=== PATIENT | female | born 1970 | race Caucasian/White ===

== ENCOUNTER 2017-04-03 17:46 | Emergency (ER) | payer OTHER ==
--- NOTE | 2017-04-03 19:32 | ED NURSING NOTES ---
Clinical Report - Nurses [facility] [address] [place] [address] 04/03/2017 17:48 Patient: KAREN MEIER TRIAGE Acuity: LEVEL 3. Chief Complaint: COUGH and (fever). Alert. No acute distress. SEPSIS SCREEN: Sepsis Screen. Negative (no infection suspected/documented). --18:09 Neelam Longo R.N. 18:02 04/03/17. BP: 125/54. HR: 107. RR: 18. O2 saturation: 93% on room air. Temp: 99.5 F (oral). Pain level now: 06/11. --18:09 Neelam Longo R.N. Weight: 117.9 kg stated. Height/Length: 63 inches Per Patient. BMI: 46.1. --18:06 Neelam Longo R.N. Medications Gabapentin Oral. --18:03 Neelam Longo R.N. Medication/allergy information source: the patient. --18:09 Neelam Longo R.N. Allergies No Known Drug Allergy. --18:03 Neelam Longo R.N. History Arrived by private vehicle. Historian: patient. Accompanied by (aunt). Primary physician (Garth). Onset. (4 days ago). ( Pt reports cough with headache and back pain for 4 days. Pt states she is coughing up green sputum.). She has had a nasal discharge, chest congestion and a headache. 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 PAST MEDICAL HX: No known contact with a sick individual. Immunizations: up-to-date. Last normal menstrual period was 6 weeks ago. Sexual history - sexually active. Has had a tubal ligation. No recent travel. SOCIAL HX: Former smoker, end date 1999. Occasional alcohol use. No drug use. FALL RISK ASSESSMENT: Fall risk assessment completed. No fall risk identified. NUTRITIONAL RISK ASSESSMENT: The nutritional risk assessment revealed no deficiencies. FUNCTIONAL ASSESSMENT: Functional assessment: no impairments noted. LEARNING NEEDS ASSESSMENT: The learning needs assessment revealed no barriers. SKIN INTEGRITY ASSESSMENT: Skin integrity risk assessment completed. No skin integrity risk identified. --18:09 Neelam Longo R.N. PROBLEMS: Trigeminal Neuralgia. Pneumonia. --18:04 Neelam Longo R.N. ADDITIONAL SURGERIES: Breast Augmentation. Dilatation & Curettage. Lumpectomy of breast. --18:04 Neelam Longo R.N. Assessment GENERAL / NEURO / PSYCH: Alert. Oriented X 4. Appears in no acute distress. Patient appears calm and cooperative. RESPIRATORY: Respirations not labored. Cough. CVS: Capillary refill less than 2 seconds. GI / : Abdomen soft. SKIN: Mucous membranes are pink. Skin is warm and dry. --18: Neelam Longo R.N. Interventions ID band on patient. To treatment room. --18: Neelam Longo R.N. PHYSICAL ASSESSMENT 18:10 04/03/17. Ambulatory to room. GENERAL / NEURO / PSYCH: Alert. Oriented X 4. Appears in no acute distress. HEENT: Pupils equal, round and reactive to light. Voice within normal limits. Mucous membranes are pink. RESPIRATORY: Respirations not labored. The patient can speak in full sentences. Nonproductive cough. CVS: Cardiac rhythm: sinus tachycardia. Capillary refill less than 2 seconds. SKIN: Skin is warm and dry. Normal skin turgor. --18:10 Neelam Longo R.N. NURSING PROGRESS NOTES Two patient identifiers checked. Checked patient name and birthdate: patient confirmed. Call light placed in reach. Bed placed in lowest position. Brakes of bed on. Patient ready for evaluation- chart flagged and ED physician and AUDIO/VIDEO ENGINEER notified. --18:11 Neelam Longo R.N. 18:12 04/03/2017 Site #1 started via IV in the right antecubital space with an 20g angiocath, with aseptic technique and good blood return; one attempt. Blood drawn: rainbow set. Labeled in the presence of the patient and sent to the lab. Saline lock flushed with 10 mL saline. --18:12 Neelam Longo R.N. 18:28 04/03/17. Patient walked to radiology with tech. --18:28 Neelam Longo R.N. EKG time: (8498). EKG was ordered, performed by a tech and shown to the ED physician. --18:28 Jael Ibarra Patient ID band checked for patient name and birthdate: patient confirmed. Clean catch urine collected with return of yellow-colored clear urine; odor is normal; sample sent to lab for urinalysis and culture. Specimen labeled in the presence of the patient. --18:38 Ana Maria Londono R.N. 18:52 04/03/2017 Started bag #1 1000 mL IV Fluids IV NS (Saline); at 999 mL/hr over 1 hour(s) via site #1 via IV pump. Allergies verified and confirmed 5 rights. IV patency established. IV site checked: no pain, redness, or swelling. IV flushed thoroughly pre- and post-medication administration. --18:52 Neelam Longo R.N. 19:06 04/03/17. Care transferred and report given ([place]). --19:06 Neelam Longo R.N. Care transferred and report received (Neelam Garcia RN). --19:14 Liz Mccauley R.N. <<STRICKEN ENTRY-- 19:14 04/03/17. The patient reports no complaints and she is calm. RESPIRATORY: No respiratory distress. Breath sounds normal. SKIN: Skin is warm and dry. Skin color is within normal limits for race. --19:14 Liz Mccauley R.N. --END STRIKE>> Charted On Wrong Patient --19:15 Liz Mccauley R.N. 19:15 04/03/17. The patient reports no complaints. RESPIRATORY: The patient reports cough. SKIN: Skin is warm and dry. Skin color is within normal limits for race. --19:15 Liz Mccauley R.N. 19:16 04/03/17. BP: 156/78 (regular adult cuff) taken on the left arm, while sitting. HR: 96. RR: 20. O2 saturation: 93% on room air. --19:16 Liz Mccauley R.N. 19:50 04/03/2017 IV Fluids IV NS Discontinued: bag #1 discontinued upon discharge. Total amount infused: 900 mL. IV patency established. IV site checked: no pain, redness, or swelling. IV flushed thoroughly. --19:55 Liz Mccauley R.N. DISPOSITION / DISCHARGE 19:55 04/03/2017 Site #1 removed upon discharge. Bandaid applied. --19:55 Liz Mccauley R.N. Departure time: 19:55 Apr 03 2017. Condition at departure: improved. No learning barriers present. Discharge instructions provided and reviewed with the patient. Reviewed medication(s) side effects, precautions, dosing and course information. Prescription(s) given to the patient. Patient verbalized understanding. Written instructions provided in [place]. The patient was discharged by the physician. She was discharged home and accompanied by parent. She left the Emergency Department ambulatory and via private vehicle. Parent driving. --19:56 Liz Mccauley R.N. 19:53 04/03/17. BP: 128/62 (regular adult cuff) taken on the left arm, while sitting. HR: 90. RR: 20. O2 saturation: 98% on room air. Temp: 99.1 F (oral). Pain level now: 5/10. Additional comments: chest. --19:56 Liz Mccauley R.N. Locked/Released at 04/04/2017 5:39 by Liz Mccauley R.N.
--- NOTE | 2017-04-03 19:32 | ED ORDER SUMMARY ---
..... Patient: KAREN MEIER OrderSheet [facility] VisitID: [id number] [address] [place] [address] 46y, F Registration Date/Time: 04/03/2017 ORDER SHEET Weight: 117.9 kg (stated) Allergies: No Known Drug Allergy GENERAL ORDERS: Chest 2V Urgent (18:18 04/03/2017 Sidney Garcia) (Ack 18:23 LNations ER Tech1) (18:40 MCampbell) Baggage Porter (Continuous) (cp ) (18:18 04/03/2017 Sidney Garcia) (Ack 18:23 LNations ER Tech1) (18:24 MWinterer R.N.) CBC w Diff Urgent (18:18 04/03/2017 Sidney Garcia) (Ack 18:23 LNations ER Tech1) (18:24 MWinterer R.N.) CMP Urgent (18:18 04/03/2017 Sidney Garcia) (Ack 18:23 LNations ER Tech1) (18:24 MWinterer R.N.) UA-Culture if indicated Urgent (18:18 04/03/2017 Sidney Garcia) (Ack 18:23 LNations ER Tech1) (18:39 KWilliams R.N.) PT with INR Urgent (18:18 04/03/2017 Sidney Garcia) (Ack 18:23 LNations ER Tech1) (18:24 MWinterer R.N.) Urine Urgent (18:18 04/03/2017 Sidney Garcia) (Ack 18:23 LNations ER Tech1) (18:39 KWilliams R.N.) Troponin-I Urgent (18:18 04/03/2017 Sidney Garcia) (Ack 18:23 LNations ER Tech1) (18:24 MWinterer R.N.) Pulse oximeter (18:18 04/03/2017 Sindey Garcia) (Ack 18:23 LNations ER Tech1) (18:24 MWinterer R.N.) MEDICATION ORDERS: IV FLUIDS: IV Saline Lock (18:18 04/03/2017 Sidney Garcia) (18:24 MWinterer R.N.) IV NS : initial bolus 1000 mL (1000 mL/hr), then none - for X1 (NOW) (18:44 04/03/2017 Sidney Garcia) (Ack 18:45 MWinterer R.N.) (18:52 MWinterer R.N.) ORDER SHEET NOTES: [Electronically signed by Liz Mccauley R.N. (05:39 04/04/2017)] [Electronically signed by Robin Polanco Dr. (06:40 04/06/2017)] [Electronically locked/signed by Liz Mccauley R.N. (05:39 04/04/2017)]
--- NOTE | 2017-04-03 19:32 | ED NURSING NOTES ---
Clinical Report - Nurses [facility] [address] [place] [address] 04/03/2017 17:48 Patient: KAREN MEIER TRIAGE Acuity: LEVEL 3. Chief Complaint: COUGH and (fever). Alert. No acute distress. SEPSIS SCREEN: Sepsis Screen. Negative (no infection suspected/documented). --18:09 Neelam Longo R.N. 18:02 04/03/17. BP: 125/54. HR: 107. RR: 18. O2 saturation: 93% on room air. Temp: 99.5 F (oral). Pain level now: 06/11. --18:09 Neelam Longo R.N. Weight: 117.9 kg stated. Height/Length: 63 inches Per Patient. BMI: 46.1. --18:06 Neelam Longo R.N. Medications Gabapentin Oral. --18:03 Neelam Longo R.N. Medication/allergy information source: the patient. --18:09 Neelam Longo R.N. Allergies No Known Drug Allergy. --18:03 Neelam Longo R.N. History Arrived by private vehicle. Historian: patient. Accompanied by (aunt). Primary physician (Garth). Onset. (4 days ago). ( Pt reports cough with headache and back pain for 4 days. Pt states she is coughing up green sputum.). She has had a nasal discharge, chest congestion and a headache. 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 PAST MEDICAL HX: No known contact with a sick individual. Immunizations: up-to-date. Last normal menstrual period was 6 weeks ago. Sexual history - sexually active. Has had a tubal ligation. No recent travel. SOCIAL HX: Former smoker, end date 1999. Occasional alcohol use. No drug use. FALL RISK ASSESSMENT: Fall risk assessment completed. No fall risk identified. NUTRITIONAL RISK ASSESSMENT: The nutritional risk assessment revealed no deficiencies. FUNCTIONAL ASSESSMENT: Functional assessment: no impairments noted. LEARNING NEEDS ASSESSMENT: The learning needs assessment revealed no barriers. SKIN INTEGRITY ASSESSMENT: Skin integrity risk assessment completed. No skin integrity risk identified. --18:09 Neelam Longo R.N. PROBLEMS: Trigeminal Neuralgia. Pneumonia. --18:04 Neelam Longo R.N. ADDITIONAL SURGERIES: Breast Augmentation. Dilatation & Curettage. Lumpectomy of breast. --18:04 Neelam Longo R.N. Assessment GENERAL / NEURO / PSYCH: Alert. Oriented X 4. Appears in no acute distress. Patient appears calm and cooperative. RESPIRATORY: Respirations not labored. Cough. CVS: Capillary refill less than 2 seconds. GI / : Abdomen soft. SKIN: Mucous membranes are pink. Skin is warm and dry. --18: Neelam Longo R.N. Interventions ID band on patient. To treatment room. --18: Neelam Longo R.N. PHYSICAL ASSESSMENT 18:10 04/03/17. Ambulatory to room. GENERAL / NEURO / PSYCH: Alert. Oriented X 4. Appears in no acute distress. HEENT: Pupils equal, round and reactive to light. Voice within normal limits. Mucous membranes are pink. RESPIRATORY: Respirations not labored. The patient can speak in full sentences. Nonproductive cough. CVS: Cardiac rhythm: sinus tachycardia. Capillary refill less than 2 seconds. SKIN: Skin is warm and dry. Normal skin turgor. --18:10 Neelam Longo R.N. NURSING PROGRESS NOTES Two patient identifiers checked. Checked patient name and birthdate: patient confirmed. Call light placed in reach. Bed placed in lowest position. Brakes of bed on. Patient ready for evaluation- chart flagged and ED physician and REGISTERED NURSE SURGICAL SERVICES notified. --18:11 Neelam Longo R.N. 18:12 04/03/2017 Site #1 started via IV in the right antecubital space with an 20g angiocath, with aseptic technique and good blood return; one attempt. Blood drawn: rainbow set. Labeled in the presence of the patient and sent to the lab. Saline lock flushed with 10 mL saline. --18:12 Neelam Longo R.N. 18:28 04/03/17. Patient walked to radiology with tech. --18:28 Neelam Longo R.N. EKG time: (0174). EKG was ordered, performed by a tech and shown to the ED physician. --18:28 Jael Ibarra Patient ID band checked for patient name and birthdate: patient confirmed. Clean catch urine collected with return of yellow-colored clear urine; odor is normal; sample sent to lab for urinalysis and culture. Specimen labeled in the presence of the patient. --18:38 Ana Maria Londono R.N. 18:52 04/03/2017 Started bag #1 1000 mL IV Fluids IV NS (Saline); at 999 mL/hr over 1 hour(s) via site #1 via IV pump. Allergies verified and confirmed 5 rights. IV patency established. IV site checked: no pain, redness, or swelling. IV flushed thoroughly pre- and post-medication administration. --18:52 Neelam Longo R.N. 19:06 04/03/17. Care transferred and report given ([place]). --19:06 Neelam Longo R.N. Care transferred and report received (Neelam Garcia RN). --19:14 Liz Mccauley R.N. <<STRICKEN ENTRY-- 19:14 04/03/17. The patient reports no complaints and she is calm. RESPIRATORY: No respiratory distress. Breath sounds normal. SKIN: Skin is warm and dry. Skin color is within normal limits for race. --19:14 Liz Mccauley R.N. --END STRIKE>> Charted On Wrong Patient --19:15 Liz Mccauley R.N. 19:15 04/03/17. The patient reports no complaints. RESPIRATORY: The patient reports cough. SKIN: Skin is warm and dry. Skin color is within normal limits for race. --19:15 Liz Mccauley R.N. 19:16 04/03/17. BP: 156/78 (regular adult cuff) taken on the left arm, while sitting. HR: 96. RR: 20. O2 saturation: 93% on room air. --19:16 Liz Mccauley R.N. 19:50 04/03/2017 IV Fluids IV NS Discontinued: bag #1 discontinued upon discharge. Total amount infused: 900 mL. IV patency established. IV site checked: no pain, redness, or swelling. IV flushed thoroughly. --19:55 Liz Mccauley R.N. DISPOSITION / DISCHARGE 19:55 04/03/2017 Site #1 removed upon discharge. Bandaid applied. --19:55 Liz Mccauley R.N. Departure time: 19:55 Apr 03 2017. Condition at departure: improved. No learning barriers present. Discharge instructions provided and reviewed with the patient. Reviewed medication(s) side effects, precautions, dosing and course information. Prescription(s) given to the patient. Patient verbalized understanding. Written instructions provided in [place]. The patient was discharged by the physician. She was discharged home and accompanied by parent. She left the Emergency Department ambulatory and via private vehicle. Parent driving. --19:56 Liz Mccauley R.N. 19:53 04/03/17. BP: 128/62 (regular adult cuff) taken on the left arm, while sitting. HR: 90. RR: 20. O2 saturation: 98% on room air. Temp: 99.1 F (oral). Pain level now: 5/10. Additional comments: chest. --19:56 Liz Mccauley R.N. Locked/Released at 04/04/2017 5:39 by Liz Mccauley R.N.
--- NOTE | 2017-04-03 19:32 | ED CLINICAL REPORT ---
Clinical Report - Physicians/Mid Levels [facility] [address] [place] [address] 04/03/2017 17:48 Patient: KAREN MEIER Time Seen: 181; initial patient contact. Arrived- By private vehicle. Historian- patient. HISTORY OF PRESENT ILLNESS Chief Complaint: COUGH and FEVER. This started past 4 days and is still present. It was gradual in onset and has been constant but is not gone now. The illness is described as moderate. The patient has had chest discomfort, a sore throat, fever and chills. Additional history - The patient has had contact with a sick individual. (family). No recent travel. Similar symptoms previously: None. Recent medical care: Not recently seen/assessed. REVIEW OF SYSTEMS No nausea. She has had skin rash. All systems otherwise negative, except as recorded above. PAST HISTORY See nurses notes. Medications: Gabapentin Oral. Allergies: No Known Drug Allergy. SOCIAL HISTORY Never smoker. Second-hand smoke exposure. No alcohol use or drug use. No recent travel. Is a local resident. ADDITIONAL NOTES The nursing notes have been reviewed. PHYSICAL EXAM Vital Signs: 04/03/2017 18:02 BP: 125/54. HR: 107. RR: 18. O2 saturation: 93%. Temp: 99.5 F. Pain level now: 9/10. Blood pressure normal. Oxygen saturation normal. Appearance: Alert. No acute distress. Eyes: Pupils equal, round and reactive to light. Eyes normal inspection. ENT: Ears normal. Nose normal. Pharynx normal. Uvula midline. Neck: Normal inspection. Neck supple. CVS: Normal heart rate and rhythm. Heart sounds normal. Pulses normal. Respiratory: No respiratory distress. Breath sounds normal. No rales, rhonchi, wheezes or stridor. Abdomen: Soft and nontender. No organomegaly. Skin: Skin warm and dry. Normal skin color. No rash. Extremities: Extremities exhibit normal ROM. No lower extremity edema. LABS, X-RAYS, AND EKG EKG: Tachycardia (109). Sinus tachycardia. Normal P waves. Normal FLOWER. Normal QRS complex. Normal axis. Normal ST and T waves, QT and QTc. The study has been interpreted contemporaneously. The study has been independently viewed by me. Artifact present. I do not agree with or confirm the computer reading of the EKG. Chest X-ray: (PROCEDURE: XR CHEST 2 VIEW INDICATION: CHEST PAIN TECHNIQUE: PA and lateral views. COMPARISON: None. FINDINGS: Subsegmental atelectasis at the right lung base. Lungs are otherwise clear. Heart and mediastinum are normal. Thorax is normal. IMPRESSION: 1. Mild subsegmental atelectasis at the right lung base. 2. Otherwise negative chest.). The X-rays were independently viewed by me and interpreted by the radiologist. The X-rays were discussed with the radiologist (via pacs and phone). Laboratory Tests: UA-Culture if indicated: (MELE: 04/03/2017 18:36) ( [facility] [place] 04/03/2017 18:58) Final results Test Result Flag Units (Reference) URINE COLOR YELLOW URINE APPEARANCE SL CLOUDY URINE GLUCOSE NEGATIVE (NEGATIVE) URINE BILIRUBIN NEGATIVE (NEGATIVE) URINE KETONE NEGATIVE (NEGATIVE) URINE SPECIFIC GRAVITY 1.010 (1.010-1.030) URINE PH 6.0 (5.0-8.0) URINE PROTEIN NEGATIVE (NEGATIVE) URINE UROBILINOGEN 0.2 EU/dL (0.2-1.0) URINE NITRITE POSITIVE (NEGATIVE) URINE BLOOD NEGATIVE (NEGATIVE) URINE LEUK ESTERASE NEGATIVE (NEGATIVE) URINE RBC NONE SEEN rbc/hpf (0-1) URINE WBC 1-3 wbc/hpf (0-1) URINE EPITHELIAL CELLS 1-3 EPI/hpf (0-5) URINE BACTERIA MANY (4+) (NONE SEEN) URINE COMMENT CULTURE INDICATED URINE CULTURES ARE SET-UP BASED ON THE FOLLOWING CRITERIA:POSITIVE NITRITEPOSITIVE LEUKOCYTE ESTERASEGREATER THAN 10 WHITE BLOOD CELLSMODERATE (2+) OR GREATER BACTERIA Urine: (MELE: 04/03/2017 18:36) ( [facility] [place] 04/03/2017 18:49) Final results Test Result Flag Units (Reference) URINE NEGATIVE CBC w Diff: (MELE: 04/03/2017 18:10) ( MsgRcvd 04/03/2017 18:40) Final results Test Result Flag Units (Reference) WHITE BLOOD COUNT 10.8 K/uL (4.5-11.5) RED BLOOD COUNT 4.60 M/uL (4.00-5.20) HEMOGLOBIN 12.6 gm/dL (12.0-16.0) HEMATOCRIT 38.2 % (36.0-46.0) MEAN CELL VOLUME 83 fL (80-100) MEAN CORPUSCULAR HGB 27 pg (26-34) MEAN CORPUSCULAR HGB CONC 33 g/dL (31-37) RED CELL DISTRIBUTION WIDTH 14.0 % (11.6-14.8) PLATELET COUNT 285 K/uL (150-400) NEUTROPHIL % 79.3 H % (50-75) LYMPH % 12.7 L % (25-40) MONO % 5.2 % (3-14) EOSINOPHIL % 1.8 % (0-4) BASOPHIL % 1.0 % (0-2) PT with INR: (MELE: 04/03/2017 18:10) ( Txg[facility]cv[facility] 04/03/2017 18:49) Final results Test Result Flag Units (Reference) INR 1.0 (0.8-1.2) Low Intensity Therapy: INR 1.5-2.0 PT range 18.5-23.1Mod.Intensity Therapy: INR 2.0-3.0 PT range 23.1-31.5High Intensity Therapy: INR 2.5-3.5 PT range 27.4-35.5High Intensity Therapy 2: INR 3.0-4.0 PT range 31.5-39.3 CMP: (MELE: 04/03/2017 18:10) ( TxgRcvd 04/03/2017 18:59) Final results Test Result Flag Units (Reference) GLUCOSE 101 mg/dL (70-110) BUN 4 L mg/dL (7-18) CREATININE 0.8 mg/dL (0.6-1.3) Estimated GFR >60 mL/min Estimated GFR- >60 mL/min Note: Persistent reduction over 3 months in eGFR<60 mL/min/1.73 m2 defines CKD. Patients with eGFR values>=60 mL/min/1.73 m2 may also have CKD if evidence ofpersistent proteinuria. Additional information may be foundat www.kidney.org. SODIUM 139 mmol/L (136-145) POTASSIUM 3.5 mmol/L (3.5-5.1) CHLORIDE 102 mmol/L (98-107) CARBON DIOXIDE 27 mmol/L (21-32) CALCIUM 8.8 mg/dL (8.5-10.1) TOTAL PROTEIN 8.4 H g/dL (6.4-8.2) ALBUMIN 3.8 g/dL (3.3-5.0) BILIRUBIN, TOTAL 0.8 mg/dL (0.0-1.0) ALKALINE PHOSPHATASE 91 U/L (46-116) AST (SGOT) 20 U/L (15-37) ALT (SGPT) 33 U/L (12-78) TROPONIN I <0.05 L ng/mL (0.00-1.5) TROPONIN REFERENCE RANGE:<0.1 NEGATIVE0.1-1.5 INDETERMINANT>1.5 POSITIVE Culture, Urine: (MELE: 04/03/2017 18:36) ( MsgRcvd 04/05/2017 10:10) Final results Test Result Flag Units (Reference) CULTURE, URINE DATE: 04/05/17 PRELIM REPORT: FINAL REPORT -- ESCCOL QUANTITATIVE URINE GROWTH: GREATER THAN 100,000 CFU/mL AMOXICILLIN/CLAVULANATE AMPICILLIN R AMPICILLIN/SULBACTAM R CEFAZOLIN S CEFTRIAXONE S CEFEPIME S CEFUROXIME CIPROFLOXACIN R ERTAPENEM S GENTAMICIN S IMIPENEM S LEVOFLOXACIN R MEROPENEM S NITROFURANTOIN S TETRACYCLINE PIP/TAZO S TRIMETHOPRIM/SULFAMETHOXAZOLE R FOSFOMYCIN S . PROGRESS AND PROCEDURES Course of Care: he patient is a 46-year-old female presented for evaluation of cough, sore throat, and chest pain. At this time differential diagnosis includes pneumonia versus pleurisy versus acute myocardial infarction. She is agreeable to the treatment and plan. All questions have been answered. The patient's workup was remarkable for urinary tract infection. Chest x-ray is clear. EKG and troponin are noted to be negative. Because of the patient's relatively unremarkable workup, do not fill patient is admitted to the hospital require further emergency department workup/evaluation. Patient will be treated for the urinary tract infection. This will also cover possible strep pharyngitis. Discussed with the patient her workup here in the emergency department including diagnosis, home care, follow-up, and return precautions. All questions have been answered. The patient expressed understanding of these instructions and was agreeable to them. Disposition: Discharged. Condition: good. CLINICAL IMPRESSION Acute viral bronchitis. Acute urinary tract infection with cystitis and hematuria. INSTRUCTIONS Warnings: GENERAL WARNINGS: Return or contact your physician immediately if your condition worsens or changes unexpectedly, if not improving as expected, or if other problems arise. Specifically return if pain, vomiting, bleeding, breathing difficulty or fever. Your Current Medications: CONTINUE TAKING THE FOLLOWING MEDICATIONS: Gabapentin Oral. Prescription Medications: Cephalexin 500 mg: take 1 capsule orally every 8 hours for 5 days. No refill. (disp 15 caps) Phenergan w/ Codeine 10mg / 6.25mg per 5 mL: take 1-2 teaspoons every 6 hours as needed for cough. Dispense sixty (60) mL. No refill. Substitution is permissible. Follow-up: Return to the emergency department as needed. Follow up with your doctor in three days. Reason for referral: recheck today's concerns. Summary of care provided to patient via paper. Screening today revealed the patient's blood pressure to be in the normal range. The patient should follow up with a primary care provider for blood pressure management. Understanding of the discharge instructions verbalized by patient. (Electronically signed by Robin Polanco Dr. 04/06/2017 6:40)
--- NOTE | 2017-04-03 19:32 | ED ORDER SUMMARY ---
..... Patient: KAREN MEIER OrderSheet [facility] VisitID: [id number] [address] [place] [address] 46y, F Registration Date/Time: 04/03/2017 ORDER SHEET Weight: 117.9 kg (stated) Allergies: No Known Drug Allergy GENERAL ORDERS: Chest 2V Urgent (18:18 04/03/2017 Sidney Garcia) (Ack 18:23 LNations ER Tech1) (18:40 MCampbell) Pile Driver Operator Helper (Continuous) (cp ) (18:18 04/03/2017 Sidney Garcia) (Ack 18:23 LNations ER Tech1) (18:24 MWinterer R.N.) CBC w Diff Urgent (18:18 04/03/2017 Sidney Garcia) (Ack 18:23 LNations ER Tech1) (18:24 MWinterer R.N.) CMP Urgent (18:18 04/03/2017 Sidney Garcia) (Ack 18:23 LNations ER Tech1) (18:24 MWinterer R.N.) UA-Culture if indicated Urgent (18:18 04/03/2017 Sidney Garcia) (Ack 18:23 LNations ER Tech1) (18:39 KWilliams R.N.) PT with INR Urgent (18:18 04/03/2017 Sidney Garcia) (Ack 18:23 LNations ER Tech1) (18:24 MWinterer R.N.) Urine Urgent (18:18 04/03/2017 Sidney Garcia) (Ack 18:23 LNations ER Tech1) (18:39 KWilliams R.N.) Troponin-I Urgent (18:18 04/03/2017 Sidney Garcia) (Ack 18:23 LNations ER Tech1) (18:24 MWinterer R.N.) Pulse oximeter (18:18 04/03/2017 Sidney Garcia) (Ack 18:23 LNations ER Tech1) (18:24 MWinterer R.N.) MEDICATION ORDERS: IV FLUIDS: IV Saline Lock (18:18 04/03/2017 Sidney Garcia) (18:24 MWinterer R.N.) IV NS : initial bolus 1000 mL (1000 mL/hr), then none - for X1 (NOW) (18:44 04/03/2017 Sidney Garcia) (Ack 18:45 MWinterer R.N.) (18:52 MWinterer R.N.) ORDER SHEET NOTES: [Electronically signed by Liz Mccauley R.N. (05:39 04/04/2017)] [Electronically signed by Robin Polanco Dr. (06:40 04/06/2017)] [Electronically locked/signed by Liz Mccauley R.N. (05:39 04/04/2017)]
--- NOTE | 2017-04-03 19:46 | DIAGNOSTIC IMAGING REPORT ---
PROCEDURE: XR CHEST 2 VIEW INDICATION: CHEST PAIN TECHNIQUE: PA and lateral views. COMPARISON: None. FINDINGS: Subsegmental atelectasis at the right lung base. Lungs are otherwise clear. Heart and mediastinum are normal. Thorax is normal. IMPRESSION: 1. Mild subsegmental atelectasis at the right lung base. 2. Otherwise negative chest. 3. Findings discussed with Dr. Polanco.
--- NOTE | 2017-04-06 06:40 | ED DISCHARGE INSTRUCTIONS ---
Patient: KAREN MEIER General Instructions [facility] VisitID: [id number] [place] [address] 46y, F Registration Date/Time: 04/03/2017 Acute viral bronchitis. Acute urinary tract infection with cystitis and hematuria. INSTRUCTIONS Warnings: GENERAL WARNINGS: Return or contact your physician immediately if your condition worsens or changes unexpectedly, if not improving as expected, or if other problems arise. Specifically return if pain, vomiting, bleeding, breathing difficulty or fever. Your Current Medications: CONTINUE TAKING THE FOLLOWING MEDICATIONS: Gabapentin Oral. Prescription Medications: Cephalexin 500 mg: take 1 capsule orally every 8 hours for 5 days. No refill. (disp 15 caps) Phenergan w/ Codeine 10mg / 6.25mg per 5 mL: take 1-2 teaspoons every 6 hours as needed for cough. Dispense sixty (60) mL. No refill. Substitution is permissible. Follow-up: Return to the emergency department as needed. Follow up with your doctor in three days. Reason for referral: recheck today's concerns. Summary of care provided to patient via paper. Screening today revealed the patient's blood pressure to be in the normal range. The patient should follow up with a primary care provider for blood pressure management. Understanding of the discharge instructions verbalized by patient. ADDITIONAL INFORMATION Bronchitis, Viral (Adult: No Abx) You have a viral bronchitis. This illness is contagious during the first few days and is spread through the air by coughing and sneezing, or by direct contact (touching the sick person and then touching your own eyes, nose, or mouth). Most viral illnesses resolve within 10-14 days with rest and simple home remedies, although they may sometimes last for several weeks. Antibiotics will not kill a virus and are generally not prescribed for this condition. Home Care: If symptoms are severe, rest at home for the first 2-3 days. When resuming activity, don't let yourself become overly tired. Do not smoke and avoid the smoke of others. You may use acetaminophen (Tylenol) or ibuprofen (Motrin, Advil) to control fever or pain, unless another pain medicine was prescribed. [NOTE: If you have chronic liver or kidney disease or ever had a stomach ulcer or GI bleeding, talk with your doctor before using these medicines.] (Aspirin should never be used in anyone under 18 years of age who is ill with a fever. It may cause severe liver damage.) Your appetite may be poor so a light diet is fine. Avoid dehydration by drinking 6-8 glasses of fluids per day (water, sport drinks such as Gatorade, juices, tea, soup, etc.). Extra fluids will help loosen secretions in the nose and lung. Ezbo-psh-ebdywcq cold medicines will not shorten the length of the illness, but may be helpful for cough (Robitussin DM), sore throat (Chloraseptic lozenges or spray), nasal and sinus congestion (Actifed or Sudafed). [NOTE: Do not use decongestants if you have high blood pressure.] Follow Up with your doctor or as directed by our staff if you are not improving over the next week. NOTE: If you are age 65 or older, or if you have chronic asthma or COPD, we recommend a PNEUMOCOCCAL VACCINATION every five years and a yearly INFLUENZAVACCINATION (FLU-SHOT) every . Ask your doctor about this. If you had an X-ray, a radiologist will review it. You will be notified of any new findings that may affect your care.] Get Prompt Medical Attention if any of the following occur: Fever over 100.4F (38.0C) for more than three days Trouble breathing, wheezing or pain with breathing Coughing up blood or increased amounts of colored sputum Weakness, drowsiness, headache, facial pain, ear pain or a stiff neck Bladder Infection,Female (Adult) A bladder infection ("cystitis" or "UTI") usually causes a constant urge to urinate and a burning when passing urine. Urine may be cloudy, smelly or dark. There may be pain in the lower abdomen. A bladder infection occurs when bacteria from the vaginal area enter the bladder opening (urethra). This can occur from sexual intercourse, wearing tight clothing, dehydration and other factors. Home Care: Drink lots of fluids (at least 6-8 glasses a day, unless you must restrict fluids for other medical reasons). This will force the medicine into your urinary system and flush the bacteria out of your body. Avoid sexual intercourse until your symptoms are gone. Avoid caffeine, alcohol and spicy foods. These can irritate the bladder. A bladder infection is treated with antibiotics. You may also be given Pyridium (generic = phenazopyridine) to reduce the burning sensation. This medicine will cause your urine to become a bright orange color. The orange urine may stain clothing. You may wear a pad or panty-liner to protect clothing. Preventing Future Infections: Always wipe from front to back after a bowel movement. Keep the genital area clean and dry. Drink plenty of fluids each day to avoid dehydration. Both sexual partners should wash before intercourse. Urinate right after intercourse to flush out the bladder. Wear cotton underwear and cotton-lined panty hose; avoid tight-fitting pants. If you are on control pills and are having frequent bladder infections, discuss with your doctor. Follow Up: Return to this facility or see your doctor if ALL symptoms are not gone after three days of treatment. Get Prompt Medical Attention if any of the following occur: Fever of 100.4F (38C) or higher, or as directed by your healthcare provider No improvement by the third day of treatment Increasing back or abdominal pain Repeated vomiting; unable to keep medicine down Weakness, dizziness or fainting Vaginal discharge Pain, redness or swelling in the labia (outer vaginal area) Blood In The Urine Blood in the urine ("hematuria") has many possible causes. If it occurs after an injury (such as a car accident or fall), it is most often a sign of bruising to the kidney or bladder. Common medical causes of blood in the urine include urinary tract infection, kidney stone, inflammation, tumors, or certain other diseases of the kidney or bladder. Menstruation can cause blood to appear in the urine sample, although it is not coming from the urinary tract. If only a trace amount of blood is present, it will show up on the urine test, even though the urine may be yellow and not pink or red. This may occur with any of the above conditions, as well as heavy exercise or high fever. In this case, your doctor may want to repeat the urine test on another day. This will show if the blood is still present. If so, then other tests can be done to find out the cause. Home Care: If your urine does not appear bloody (pink, brown or red) then you do not need to restrict your activity in any way. If you can see blood in your urine, rest and avoid heavy exertion until your next exam. Do not use aspirin or anti-inflammatory medicine like ibuprofen (Motrin, Advil) or naproxen (Naprosyn, Aleve). These thin the blood and may increase bleeding. Follow Up with your doctor or as advised by our staff. If you were injured and had blood in your urine, you should have a repeat urine test in 1-2 days. Contact your doctor or return to this facility for this test. [NOTE: A radiologist will review any X-rays that were taken. We will notify you of any new findings that may affect your care.] Get Prompt Medical Attention if any of the following occur: Bright red blood or blood clots in the urine (if a new symptom) Weakness, dizziness or fainting New groin, abdominal or back pain Fever of 100.4F (38C) or higher, or as directed by your healthcare provider Repeated vomiting Bleeding from nose, gums or easy bruising Cephalexin Monohydrate Oral tablet What is this medicine? CEPHALEXIN (sef a HEDY in) is a cephalosporin antibiotic. It is used to treat certain kinds of bacterial infections It will not work for colds, flu, or other viral infections. How should I use this medicine? Take this medicine by mouth with a full glass of water. Follow the directions on the prescription label. This medicine can be taken with or without food. Take your medicine at regular intervals. Do not take your medicine more often than directed. Take all of your medicine as directed even if you think you are better. Do not skip doses or stop your medicine early. Talk to your hvac/r service technician regarding the use of this medicine in children. While this drug may be prescribed for selected conditions, precautions do apply. What side effects may I notice from receiving this medicine? Side effects that you should report to your doctor or health insurance healthcare representative as soon as possible: allergic reactions like skin rash, itching or hives, swelling of the face, lips, or tongue breathing problems pain or trouble passing urine redness, blistering, peeling or loosening of the skin, including inside the mouth severe or watery diarrhea unusually weak or tired yellowing of the eyes, skin Side effects that usually do not require medical attention (report to your doctor or health insurance healthcare representative if they continue or are bothersome): gas or heartburn genital or anal irritation headache joint or muscle pain nausea, vomiting What may interact with this medicine? probenecid some other antibiotics What if I miss a dose? If you miss a dose, take it as soon as you can. If it is almost time for your next dose, take only that dose. Do not take double or extra doses. There should be at least 4 to 6 hours between doses. Where should I keep my medicine? Keep out of the reach of children. Store at room temperature between 59 and 86 degrees F (15 and 30 degrees C). Throw away any unused medicine after the expiration date. What should I tell my health care provider before I take this medicine? They need to know if you have any of these conditions: kidney disease stomach or intestine problems, especially colitis an unusual or allergic reaction to cephalexin, other cephalosporins, penicillins, other antibiotics, medicines, foods, dyes or preservatives or trying to get breast-feeding What should I watch for while using this medicine? Tell your doctor or health insurance healthcare representative if your symptoms do not begin to improve in a few days. Do not treat diarrhea with over the counter products. Contact your doctor if you have diarrhea that lasts more than 2 days or if it is severe and watery. If you have diabetes, you may get a false-positive result for sugar in your urine. Check with your doctor or health insurance healthcare representative. You have been given the following additional information: Bronchitis, No Antibiotic (Adult) Bladder Infection, Female (Adult) Hematuria Cephalexin Monohydrate Oral tablet (Electronically signed by Robin Polanco Dr. 04/06/2017 6:40)
--- NOTE | 2017-04-06 06:40 | ED MAR SUMMARY ---
..... Medication Administration Record [facility] [address] [place] [address] Patient: KAREN MEIER Visit ID: [id number] 46y, F Weight: 117.9 kg Height/Length: 63 in BMI: 46.1 ALLERGIES: No Known Drug Allergy Start 18:52 04/03/2017 Neelam Longo RLeanna, Stop 19:50 04/03/2017 Liz Mccauley R.N. Medication Administered: IV NS (SALINE), Dose: IV Fluids over 1 hour(s), Rate: 999 mL/hr, Dispensed: 1000 mL bag, Site: #1 right AC. Medication Ordered: IV NS : initial bolus 1000 mL (1000 mL/hr), then none - for X1 (NOW).
--- NOTE | 2017-04-06 06:40 | ED MED RECONCILIATION SUMMARY ---
Patient: KAREN MEIER Medication Reconciliation Report [facility] VisitID: [id number] [address] [place] [address] 46y, F Registration Date/Time: 04/03/2017 Weight: 117.9 kg Height/Length: 63 in. BMI: 46.1 ALLERGIES: No Known Drug Allergy The patient's Home Medications are listed below: CONTINUE TAKING THE FOLLOWING MEDICATIONS: Gabapentin Oral The source(s) of the original Home Medication information: patient The following Medications were given to the patient in the Emergency Department: IV NS IV Fluids bolus 0, then 999 mL/hr, administered: 04/03/2017 6:52:00 PM The following Medications were prescribed to the patient: Cephalexin 500 mg: take 1 capsule orally every 8 hours for 5 days. No refill.(disp 15 caps) -- Robin Polanco Dr. Phenergan w/ Codeine 10mg / 6.25mg per 5 mL: take 1-2 teaspoons every 6 hours as needed for cough. Dispense sixty (60) mL. No refill. Substitution is permissible. -- Robin Polanco Dr.
--- NOTE | 2017-04-06 06:40 | ED MED RECONCILIATION SUMMARY ---
Patient: KAREN MEIER Medication Reconciliation Report [facility] VisitID: [id number] [address] [place] [address] 46y, F Registration Date/Time: 04/03/2017 Weight: 117.9 kg Height/Length: 63 in. BMI: 46.1 ALLERGIES: No Known Drug Allergy The patient's Home Medications are listed below: CONTINUE TAKING THE FOLLOWING MEDICATIONS: Gabapentin Oral The source(s) of the original Home Medication information: patient The following Medications were given to the patient in the Emergency Department: IV NS IV Fluids bolus 0, then 999 mL/hr, administered: 04/03/2017 6:52:00 PM The following Medications were prescribed to the patient: Cephalexin 500 mg: take 1 capsule orally every 8 hours for 5 days. No refill.(disp 15 caps) -- Robin Polanco Dr. Phenergan w/ Codeine 10mg / 6.25mg per 5 mL: take 1-2 teaspoons every 6 hours as needed for cough. Dispense sixty (60) mL. No refill. Substitution is permissible. -- Robin Polanco Dr.
--- NOTE | 2017-04-06 06:40 | ED MAR SUMMARY ---
..... Medication Administration Record [facility] [address] [place] [address] Patient: KAREN MEIER Visit ID: [id number] 46y, F Weight: 117.9 kg Height/Length: 63 in BMI: 46.1 ALLERGIES: No Known Drug Allergy Start 18:52 04/03/2017 Neelam Longo RLeanna, Stop 19:50 04/03/2017 Liz Mccauley R.N. Medication Administered: IV NS (SALINE), Dose: IV Fluids over 1 hour(s), Rate: 999 mL/hr, Dispensed: 1000 mL bag, Site: #1 right AC. Medication Ordered: IV NS : initial bolus 1000 mL (1000 mL/hr), then none - for X1 (NOW).
== END 2017-04-03 19:55 | disposition home or self-care (01) ==
LOC: ED SRH 17:46
DX: N30.01 Acute cystitis with hematuria (principal); B96.20 Unspecified Escherichia coli [E. coli] as the cause of diseases classified elsewhere; J20.8 Acute bronchitis due to other specified organisms; Z79.899 Other long term (current) drug therapy; Z77.22 Contact with and (suspected) exposure to environmental tobacco smoke (acute) (chronic)
CPT/HCPCS: 90004; 90025; 90100; 90148; 90469; 90616; 93070; 94060; 95059